=== PATIENT | male | born 1985 | race Caucasian/White ===

== ENCOUNTER 2021-01-01 15:00 | Emergency (ER) | payer OTHER ==
[~2021-01-01] VITALS: Ht 175.3 cm; Wt 75.0 kg
[2021-01-01 15:04] VITALS: BP 124/78
[2021-01-01] MEDS ORDERED: LEVETIRACETAM 500MG TABLET PO ONE (17:15)
[2021-01-01 18:27] LABS: BASOPHILS % 0.9 % (0.0-2.0); EOSINOPHILS % 2.3 % (0.0-5.0); HEMATOCRIT. 43.8 % (42.0-52.0); HEMOGLOBIN. 15.3 g/dL (14.0-18.0); LYMPHOCYTES % 29.4 % (20.0-50.0); MEAN CORPUSCULAR HEMOGLOBIN 29.8 pg (28.0-32.0); MEAN CORPUSCULAR VOLUME 85.3 fL (80.0-94.0); MEAN PLATELET VOLUME 7.1 fl (7.4-10.4); NEUTROPHILS % 63.4 % (40.0-76.0); PLATELET 441 x1000/uL (130-400); RED BLOOD CELL COUNT 5.14 mill/uL (4.7-6.1); RED CELL DISTRIBUTION WIDTH 15.1 % (11.6-14.6)
[2021-01-01 18:35] LABS: CHLORIDE 106 mEq/L (98-107)
[2021-01-01 18:44] LABS: PHENOBARBITAL < 2.1 ug/mL (15.0-40.0); VALPROIC ACID < 3.0 ug/mL (50-100)
[2021-01-01 18:49] LABS: CARBAMAZEPINE < 0.5 ug/mL (4-12)
[2021-01-01] MEDS ORDERED: KEPP500 MT (19:01)
== END 2021-01-01 19:09 | disposition home or self-care (01) ==
LOC: ER 15:00
DX: R56.9 Unspecified convulsions (principal)
CPT/HCPCS: 36415; 80053; 80156; 80165; 80184; 80185; 85025; 93005; 99284